=== PATIENT | female | born 2000 | race African-American/Black ===

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

== ENCOUNTER 2018-01-17 05:53 | Emergency (ER) | payer OTHER, SELFPAY ==
[2018-01-17 06:21] LABS: Bilirubin Negative (Negative); Blood, Urine Negative (Negative); Clarity Clear (Clear); Glucose, Urine (Dipstick) Negative (Negative); Leukocyte Negative (Negative); Nitrite Negative (Negative); Protein, Urine (Dipstick) Negative (Neg-Trace); Specific Gravity, Urine 1.015 (1.005-1.030); Urobilinogen 0.2 mg/dL (0.2-1.0)
[2018-01-17 06:29] LABS: Pregnancy Test - Urine (BHCG) Negative (Negative); Pregu Control Background? CLEAR/WHITE (CLR/WHITE); Pregu Control Bar Appear? YES (CONTROL BAR); Specific Gravity 1.015 (1.002-1.036)
[2018-01-17] MEDS ORDERED: HYDROcodone/Acetaminophen 10/325 mg Tablet ONE (06:35)
[2018-01-17] MEDS ORDERED: Famotidine 20 MG TAB ONE (06:35)
[2018-01-17 07:11] LABS: #Basophils 0.2 thou/uL (0.0-0.2); #Lymphocytes 3.3 thou/uL (1.20-3.40); #Monocytes 0.3 thou/uL (0.11-0.59); #Neutrophils 5.6 thou/uL (1.40-6.50); %Basophils 1.7 % (0.0-1.0); %Eosinophils 0.3 % (0.0-10.0); %Lymphocytes 35.4 % (28.0-48.0); %Monocytes 3.5 % (0.0-4.0); %Neutrophils 59.1 % (31.0-61.0); Hemoglobin 11.9 g/dL (12.0-16.0); Mean Corpuscular Hemoglobin 22.9 pg (25.0-35.0); Mean Corpuscular Volume 71.6 fl (77.0-87.0); Mean Platelet Volume 6.9 fL (7.4-10.4); Platelet Count 384 thou/uL (130-400); RBC Distribution Width 15.9 % (11.5-14.5); Red Blood Cell (RBC) Count 5.19 mill/uL (4.00-5.20); White Blood Cell (WBC) Count 9.4 thou/uL (4.8-10.8)
[2018-01-17 07:12] LABS: Anisocytosis MODERATE=16-30 cells (100X) (0-5/hpf); Hypochromia SLIGHT = 6-15 cells (100X) (0-5/hpf); Microcytosis MODERATE=15-30 cells (100X) (0-5/hpf)
[2018-01-17 07:18] LABS: Anion Gap 12 mmol/L (10-20); Calc. Creatinine Clearance 0 mL/min (70-130); Calcium 8.7 mg/dL (7.8-10.44); Carbon Dioxide 20 mmol/L (22-29); Chloride 111 mmol/L (98-107); Estimated GFR-MDRD Greater than 90; Glucose 98 mg/dL (70-105); Potassium 4.6 mmol/L (3.5-5.1); Sodium 138 mmol/L (136-145)
[2018-01-17 07:31] LABS: BUN (Urea Nitrogen) 16 mg/dL (8.4-21.0)
== END 2018-01-17 07:30 | disposition home or self-care (01) ==
LOC: MADERS 05:53
DX: K21.9 Gastro-esophageal reflux disease without esophagitis (principal)
CPT/HCPCS: 36415; 80048; 81003; 81025; 85025; 99284

== ENCOUNTER 2018-03-25 07:25 | Emergency (ER) | payer SELFPAY ==
[2018-03-25] MEDS ORDERED: AMOXicillin 250 MG CAP ONE (08:47)
[2018-03-25] MEDS ORDERED: Fluconazole 100 MG TAB ONE (08:47)
[2018-03-25] MEDS ORDERED: Benzonatate 100 MG CAP ONE (08:47)
--- NOTE | 2018-03-25 09:39 | RAD ---
CHEST 1 VIEW: HISTORY: A 17-year-old female with a history of cough and right basilar chest pain. COMPARISON: 07/07/15. FINDINGS: Heart size is within normal limits. The lungs are clear. No pneumonia, edema, or pleural effusion. IMPRESSION: No acute intrathoracic disease. POS: [facility]
== END 2018-03-25 08:55 | disposition home or self-care (01) ==
LOC: MADERS 07:25
DX: J20.9 Acute bronchitis, unspecified (principal); N76.0 Acute vaginitis
CPT/HCPCS: 71045

== ENCOUNTER 2018-05-17 13:14 | Emergency (ER) | payer SELFPAY | END 2018-05-17 13:56 | disposition home or self-care (01) | LOC: MADERS 13:14 | DX: R45.1 Restlessness and agitation (principal); R53.83 Other fatigue; T43.4X5A Adverse effect of butyrophenone and thiothixene neuroleptics, initial encounter | CPT/HCPCS: 99284 ==

== ENCOUNTER 2018-05-17 21:51 | Emergency (ER) | payer SELFPAY ==
[~2018-05-17 21:51] MED LIST: Sodium Chloride 0.9% 1,000 ML BAG ONE
[2018-05-17 22:35] LABS: BHCG - Serum Negative (NEGATIVE); Pregs Control Background? CLEAR/WHITE (CLR/WHITE); Pregs Control Bar Appear? YES (CONTROL BAR)
[2018-05-17 22:41] LABS: ALT (SGPT) 16 U/L (8-55); AST (SGOT) 14 U/L (5-30); Albumin 4.2 g/dL (3.5-5.0); Alkaline Phosphatase 72 U/L (40-150); Anion Gap 17 mmol/L (10-20); BUN (Urea Nitrogen) 5 mg/dL (8.4-21.0); Bilirubin, Total 0.4 mg/dL (0.2-1.2); Calc. Creatinine Clearance 0 mL/min (70-130); Calcium 9.7 mg/dL (7.8-10.44); Carbon Dioxide 18 mmol/L (22-29); Chloride 109 mmol/L (98-107); Estimated GFR-MDRD Greater than 90; Globulin 2.9 g/dL (2.4-3.5); Glucose 89 mg/dL (70-105); Potassium 3.5 mmol/L (3.5-5.1); Protein, Total 7.1 g/dL (6.0-8.3); Sodium 140 mmol/L (136-145)
[2018-05-17 22:46] LABS: Hemoglobin 10.5 g/dL (12.0-16.0); Mean Corpuscular HGB CONC 31.1 g/dL (32.0-36.0); Mean Corpuscular Hemoglobin 21.7 pg (25.0-35.0); Mean Corpuscular Volume 69.9 fL (78.0-98.0); Mean Platelet Volume 6.6 fL (7.4-10.4); Platelet Count 340 thou/uL (130-400); RBC Distribution Width 14.3 % (11.5-14.5); Red Blood Cell (RBC) Count 4.82 mill/uL (4.00-5.20); White Blood Cell (WBC) Count 9.8 thou/uL (4.8-10.8)
[2018-05-17 22:48] LABS: %Eosinophils 3.6 % (0.0-10.0); %Lymphocytes 27.4 % (28.0-48.0); %Monocytes 5.2 % (0.0-4.0); %Neutrophils 65.3 % (31.0-61.0)
[2018-05-17 22:49] LABS: #Basophils 0.2 thou/uL (0.0-0.2); #Monocytes 0.5 thou/uL (0.11-0.59); #Neutrophils 6.4 thou/uL (1.40-6.50); %Basophils 1.8 % (0.0-1.0); Eosinophils 1 % (0-10); Lymphocytes 19 % (28-48); MDiff Complete? YES; Monocytes 6 % (0-4); Neutrophil 69 % (31-61); Reactive Lymphocytes 5 % (0-10)
[2018-05-17 22:50] LABS: Anisocytosis SLIGHT = 6-15 cells (100X) (0-5/hpf); Hypochromia SLIGHT = 6-15 cells (100X) (0-5/hpf); Macrocytosis SLIGHT = 6-15 cells (100X) (0-5/hpf); Microcytosis SLIGHT = 6-15 cells (100X) (0-5/hpf); PLT Morphology Comment Appears Adequate; Poikilocytosis SLIGHT = 6-15 cells (100X) (0-5/hpf); RBC Morphology Abnormal
[2018-05-17 23:34] LABS: Acetaminophen Less than 6.0 mcg/mL (10.0-30.0); Alcohol Less than 10 mg/dL (Less than 10); Salicylate Less than 8.0 mg/dL (15.0-30.0)
[2018-05-18 00:27] LABS: Bilirubin Negative (Negative); Blood, Urine Negative (Negative); Clarity Clear (Clear); Glucose, Urine (Dipstick) Negative (Negative); Leukocyte Trace (Negative); Nitrite Negative (Negative); Protein, Urine (Dipstick) Negative (Neg-Trace); Specific Gravity, Urine 1.015 (1.005-1.030); Urobilinogen 0.2 mg/dL (0.2-1.0)
[2018-05-18 00:31] LABS: Amphetamine Not Detected (NotDetected); Barbiturates Screen Not Detected (NotDetected); Benzodiazepine Screen Not Detected (NotDetected); Cocaine Metabolite Screen Not Detected (NotDetected); Medtox Control Line Valid? VALID (VALID); Methadone Not Detected (NotDetected); Methamphetamine Not Detected (NotDetected); Opiate Screen Not Detected (NotDetected); Oxycodone Screen Not Detected (NotDetected); Phencyclidine (PCP) Not Detected (NotDetected); THC/Cannabinoid Screen Not Detected (NotDetected); Tricyclic Screen Not Detected (NotDetected)
[2018-05-18 00:34] LABS: Bacteria/HPF None Seen HPF (None Seen); RBC/HPF 0-3 HPF (0-3); Squamous Epithelial 0-3 HPF (0-3)
== END 2018-05-18 00:30 | disposition home or self-care (01) ==
LOC: MADERS 21:51
DX: E86.0 Dehydration (principal)
CPT/HCPCS: 80053; 80306; 80307; 81003; 81015; 83605; 84703; 85025; 93005; 96360; J7050

== ENCOUNTER 2020-03-02 17:34 | Emergency (ER) | payer SELFPAY ==
[2020-03-02 18:28] LABS: Bilirubin Small (Negative); Blood, Urine Negative (Negative); Glucose, Urine (Dipstick) Negative (Negative); Leukocyte Trace (Negative); Nitrite Negative (Negative); Protein, Urine (Dipstick) 30 mg/dL (Neg-Trace)
[2020-03-02 18:34] LABS: Clarity Hazy (Clear)
[2020-03-02 18:38] LABS: BHCG - Serum Negative (NEGATIVE); Pregs Control Background? CLEAR/WHITE (CLR/WHITE); Pregs Control Bar Appear? YES (CONTROL BAR)
[2020-03-02 18:40] LABS: Bacteria/HPF Rare-Few HPF (None Seen); Mucous/LPF 2+ LPF (<2+); RBC/HPF None Seen HPF (0-3)
[2020-03-02 18:46] LABS: ALT (SGPT) 16 U/L (8-55); AST (SGOT) 15 U/L (5-34); Albumin 4.1 g/dL (3.5-5.0); Alkaline Phosphatase 62 U/L (40-110); Anion Gap 15 mmol/L (10-20); Anisocytosis SLIGHT = 6-15 cells (100X) (0-5/hpf); BUN (Urea Nitrogen) 12 mg/dL (7.0-18.7); Bilirubin, Total 0.3 mg/dL (0.2-1.2); Calc. Creatinine Clearance 0 mL/min (70-130); Calcium 8.6 mg/dL (7.8-10.44); Carbon Dioxide 19 mmol/L (22-29); Chloride 107 mmol/L (98-107); Estimated GFR-MDRD Greater than 90; Globulin 2.8 g/dL (2.4-3.5); Glucose 89 mg/dL (70-105); Hemoglobin 12.7 g/dL (12.0-16.0); Lipase 19 U/L (8-78); Lymphocytes 10 % (21-51); MDiff Complete? YES; Mean Corpuscular HGB CONC 30.1 g/dL (32.0-36.0); Mean Platelet Volume 8.3 fL (7.4-10.4); Monocytes 4 % (0-10); Neutrophil 64 % (42-75); Platelet Count 335 thou/uL (130-400); Polychromasia SLIGHT = 2-3 cells (100X) (0-2/hpf); Potassium 3.4 mmol/L (3.5-5.1); Protein, Total 6.9 g/dL (6.0-8.3); RBC Distribution Width 16.1 % (11.5-14.5); Reactive Lymphocytes 22 % (0-10); Sodium 138 mmol/L (136-145); White Blood Cell (WBC) Count 6.7 thou/uL (4.8-10.8)
[2020-03-02] MEDS ORDERED: Potassium Chloride 20 MEQ TAB ONE (18:59)
== END 2020-03-02 19:16 | disposition home or self-care (01) ==
LOC: MADERS 17:34
DX: E87.6 Hypokalemia (principal); R19.7 Diarrhea, unspecified; F17.210 Nicotine dependence, cigarettes, uncomplicated
CPT/HCPCS: 80053; 81003; 81015; 83690; 84703; 85025; 96360; J7050

== ENCOUNTER 2021-05-25 21:56 | Emergency (ER) | payer SELFPAY ==
[2021-05-26 21:59] LABS: SARS-CoV-2 PCR by NAA Not Detected (NotDetected)
== END 2021-05-26 00:01 | disposition home or self-care (01) ==
LOC: MADERS 21:56
DX: B34.9 Viral infection, unspecified (principal); Z20.822 Contact with and (suspected) exposure to COVID-19; F17.210 Nicotine dependence, cigarettes, uncomplicated
CPT/HCPCS: 99283; U0003; U0005

== ENCOUNTER 2022-04-12 16:06 | Emergency (ER) | payer SELFPAY ==
[2022-04-12 17:51] LABS: Bilirubin Small (Negative); Blood, Urine Negative (Negative); Glucose, Urine (Dipstick) Negative (Negative); Ketone, Urine 80 mg/dL (Negative); Leukocyte Negative (Negative); Nitrite Negative (Negative); Protein, Urine (Dipstick) 30 mg/dL (Neg-Trace); Urobilinogen 0.2 mg/dL (Less than 2); pH, Urine 5.5 (5.0-9.0)
[2022-04-12 17:55] LABS: Clarity Hazy (Clear)
[2022-04-12 17:57] LABS: Specific Gravity, Urine 1.036 (1.002-1.036)
[2022-04-12 17:58] LABS: BHCG - Serum Negative (NEGATIVE); Pregs Control Background? CLEAR/WHITE (CLR/WHITE); Pregs Control Bar Appear? YES (CONTROL BAR)
[2022-04-12 18:01] LABS: Bacteria/HPF Rare-Few HPF (None Seen); Mucous/LPF 3+ LPF (<2+); RBC/HPF None Seen HPF (0-3); WBC/HPF 0-3 HPF (0-3)
[2022-04-12 18:05] LABS: Anion Gap 18 mmol/L (10-20); BUN (Urea Nitrogen) 14 mg/dL (7.0-18.7); Calc. Creatinine Clearance 0 mL/min (70-130); Calcium 9.4 mg/dL (7.8-10.44); Carbon Dioxide 20 mmol/L (22-29); Chloride 107 mmol/L (98-107); Estimated GFR 117; Glucose 70 mg/dL (70-105); Sodium 141 mmol/L (136-145)
== END 2022-04-12 18:51 | disposition home or self-care (01) ==
LOC: MADERS 16:06
DX: E86.0 Dehydration (principal); F17.210 Nicotine dependence, cigarettes, uncomplicated
CPT/HCPCS: 36415; 80048; 81003; 81015; 84703; 99283

== ENCOUNTER 2022-12-14 19:01 | Emergency (ER) | payer OTHER, SELFPAY ==
[2022-12-14] MEDS ORDERED: Cyclobenzaprine 10 MG TAB ONE (19:41)
[2022-12-14] MEDS ORDERED: Ibuprofen 800 MG TAB ONE (19:41)
[2022-12-14] MEDS ORDERED: Acetaminophen 325 MG Suppository ONE (19:41)
[2022-12-14] MEDS ORDERED: Acetaminophen 325 MG TAB ONE (19:42)
[2022-12-14] MEDS ORDERED: Lidocaine 4% Patch TD SCH (20:00)
[2022-12-14] MEDS ORDERED: PROPOFOL 20 ML ONE (21:25)
[2022-12-15] MEDS ORDERED: Transdermal Patch Removal TOP SCH (08:00)
== END 2022-12-14 23:30 | disposition home or self-care (01) ==
LOC: MADERS 19:01
DX: S53.022 Posterior subluxation of left radial head (principal); S16.1XXA Strain of muscle, fascia and tendon at neck level, initial encounter; F17.210 Nicotine dependence, cigarettes, uncomplicated; V47.0XXA Car driver injured in collision with fixed or stationary object in nontraffic accident, initial encounter; W22.11XA Striking against or struck by driver side automobile airbag, initial encounter; Y92.410 Unspecified street and highway as the place of occurrence of the external cause
CPT/HCPCS: 29105; 70450; 99152; J2704

== ENCOUNTER 2025-04-17 06:43 | Emergency (ER) | payer OTHER ==
[2025-04-17] MEDS ORDERED: Bacitracin 1 PK ONE (07:27)
[2025-04-17] MEDS ORDERED: Acetaminophen 500 MG TAB ONE (07:28)
[2025-04-17] MEDS ORDERED: Ibuprofen 800 MG TAB ONE (07:28)
== END 2025-04-17 07:47 | disposition home or self-care (01) ==
LOC: MADERS 06:43
DX: T21.21XA Burn of second degree of chest wall, initial encounter (principal); S43.402A Unspecified sprain of left shoulder joint, initial encounter; I10 Essential (primary) hypertension; F17.210 Nicotine dependence, cigarettes, uncomplicated; X50.0XXA Overexertion from strenuous movement or load, initial encounter
CPT/HCPCS: 99283